=== PATIENT | female | born 1995 | race African-American/Black ===

== ENCOUNTER 2019-05-08 10:12 | Emergency (ER) | payer SELFPAY ==
--- NOTE | 2019-05-08 10:15 | PDOC ---
History of Present Illness - General Chief Complaint: Urinary Problem Stated Complaint: UTI Time Seen by Provider: 05/08/19 10:14 - History of Present Illness Initial Comments: 05/08/19 10:48 Chief complaint: Frequency of urination HPI: Patient with frequent UTIs in the past, has had frequent urination and urgency for approximately 1 week, mild suprapubic discomfort, but no karl dysuria. Past UTIs have been without complication. There is no irritation and there are no lesions in the vaginal area. No unusual discharge. Menses are irregular. She is on control pills. Review of systems: Denies fever/chills, back pain, nausea, vomiting, diarrhea, chest pain, shortness of breath. Remainder of systems reviewed and found to be negative Past medical history: Denies any significant medical or surgical problems past or present other than minor UTIs as noted above Social/family history reviewed and noncontributory Physical exam: Alert and oriented well-developed well-nourished no acute distress cheerful and cooperative Afebrile, vital signs normal HEENT clear Neck supple without bruit mass or nodes Chest clear CV regular without murmur rub or gallop Abdomen nondistended. Bowel sounds normal. Soft without mass organomegaly. There is mild tenderness to deep palpation in the suprapubic area, not localizing to the left or right side. There is no guarding or rebound. There is no CVAT. Impression: UTI versus vaginitis Plan: Urinalysis and further medical management depending on results. Past History - Past Medical History Allergies/Adverse Reactions: Allergies Allergy/AdvReac Type Severity Reaction Status Date / Time No Known Allergies Allergy Verified 05/08/19 10:14 Home Medications: Ambulatory Orders Phenazopyridine HCl [Pyridium] 100 - 200 mg PO TID PRN #12 tablet 05/08/19 Sulfamethoxazole/Trimethoprim [Bactrim Ds -] 1 tab PO BID #10 tablet 05/08/19 - Psycho Social/Smoking Cessation Hx Smoking History: Never smoked Hx Alcohol Use: No Drug/Substance Use Hx: No Substance Use Type: None Medical Decision Making - Medical Decision Making 05/08/19 11:00 Urinalysis reveals large numbers of white cells and red cells. Antibiotics prescribed. Pyridium for discomfort. Referred to urologist. Fully ambulatory and in no significant distress at discharge to follow-up as directed Discharge - Discharge Information Problems reviewed: Yes Clinical Impression/Diagnosis: UTI (urinary tract infection) Qualifiers: Urinary tract infection type: acute cystitis Hematuria presence: without hematuria Qualified Code(s): N30.00 - Acute cystitis without hematuria Condition: Stable Disposition: HOME - Admission No - Additional Discharge Information Prescriptions: Phenazopyridine HCl [Pyridium] 100 - 200 mg PO TID PRN #12 tablet PRN Reason: Urinary discomfort Sulfamethoxazole/Trimethoprim [Bactrim Ds -] 1 tab PO BID #10 tablet - Follow up/Referral Referrals: Pramod Maya MD., MD [Staff Physician] - - Patient Discharge Instructions Patient Printed Discharge Instructions: DI for Urinary Tract Infection (UTI) - Post Discharge Activity
[2019-05-08 10:20] VITALS: BMI 32.6
[2019-05-08 10:23] VITALS: BP 130/80; PULSE 70; TEMP 97.5
[2019-05-08 10:38] LABS: EPITHELIAL CELLS FEW /hpf
== END 2019-05-08 11:06 | disposition home or self-care (01) ==
LOC: FER 10:12
DX: N30.00 Acute cystitis without hematuria (principal)
CPT/HCPCS: 81003; 81015; 84703; 99282-25

== ENCOUNTER 2020-11-28 09:05 | Emergency (ER) | payer OTHER ==
[2020-11-28 09:24] VITALS: BP 134/72; PULSE 62; TEMP 97.6; BMI 38.2
== END 2020-11-28 09:52 | disposition home or self-care (01) ==
LOC: FER 09:05
DX: L20.9 Atopic dermatitis, unspecified (principal); L29.9 Pruritus, unspecified
CPT/HCPCS: 99281-25